=== PATIENT | female | born 1945 | race Hispanic/Latino ===

== ENCOUNTER → 2018-05-12 | Outpatient (CLI) | payer MEDICARE ==
[~2018-05-12] MED LIST: IOPAMIDOL 370 MG/ML 200 ML INFUS..BTL INJ ONE; SODIUM CHLORIDE 0.9% 250ML 250 ML ONE
[2018-05-12 11:47] LABS: BLOOD UREA NITROGEN 14 mg/dL (7-26); BUN/CREATININE RATIO 16 (6-25); CREATININE, SERUM 0.85 mg/dL (0.57-1.11); EST GLOMERULAR FILTRATION RATE > 60 ML/MIN (60-)
--- NOTE | 2018-05-12 15:33 | Diagnostic Imaging Report ---
PROCEDURE: CT ABDOMEN & PELVIS W/WO CONTRAST TECHNIQUE: The abdomen and pelvis were scanned utilizing a multidetector helical scanner from the diaphragm to the lesser trochanter before and after the IV administration of 100 cc of Isovue 370 and the oral administration of water. Coronal and sagittal multiplanar reformations were obtained. Hematuria protocol was utilized. Dose sparing technology was performed. DLP: 752.11 mGy-cm COMPARISON: None. INDICATIONS: HEMATURIA FINDINGS: LOWER THORAX: Normal. HEPATOBILIARY: No focal hepatic lesions. Multiple hepatic cysts. No biliary ductal dilatation. Clips in the gallbladder fossa. SPLEEN: No splenomegaly. PANCREAS: No focal masses or ductal dilatation. ADRENALS: No adrenal nodules. KIDNEYS/URETERS: No hydronephrosis, stones or solid mass lesions. No calcified renal or ureteral stones. Several small renal cysts. PELVIC ORGANS/BLADDER: Unremarkable. PERITONEUM / RETROPERITONEUM: No free air or fluid. LYMPH NODES: No lymphadenopathy. VESSELS: Atherosclerotic vascular calcification. GI TRACT: No distention or wall thickening. There is a clip adjacent to the cecum. BONES AND SOFT TISSUES: Degenerative changes of the spine. IMPRESSION: 1. No calcified renal or ureteral stones. 2. No evidence of a renal mass with several small cysts present. 3. The urinary bladder is unremarkable. Anatoliy Powers D.O. Dictated by: Anatoliy Powers D.O. on 05/12/2018 at 15:44 Electronically approved by: Anatoliy Powers D.O. on 05/12/2018 at 15:44
== END ==
LOC: CT 10:22
PROVIDERS: ATTEND Urology
DX: R31.21 Asymptomatic microscopic hematuria (principal)
CPT/HCPCS: 36415; 74178; 82565; 84520; J7050; Q9967